=== PATIENT | female | born 1985 | race Caucasian/White ===

== ENCOUNTER 2023-09-06 10:32 | Outpatient (CLI) | payer OTHER, SELFPAY | END 2023-09-06 10:33 | disposition home or self-care (01) | PROVIDERS: PCP Nurse Practitioner Family; Visit Provider Nurse Practitioner Family | DX: Z00.00 Encounter for general adult medical examination without abnormal findings (principal); E66.9 Obesity, unspecified; Z13.6 Encounter for screening for cardiovascular disorders; Z13.1 Encounter for screening for diabetes mellitus | CPT/HCPCS: 80061; 82306; 82947 ==

== ENCOUNTER 2025-03-18 11:05 | Outpatient (CLI) | payer OTHER, SELFPAY | END 2025-03-18 11:06 | disposition home or self-care (01) | PROVIDERS: PCP Nurse Practitioner Family; Visit Provider Nurse Practitioner Family | DX: Z00.00 Encounter for general adult medical examination without abnormal findings (principal); E66.9 Obesity, unspecified; Z13.21 Encounter for screening for nutritional disorder; Z13.6 Encounter for screening for cardiovascular disorders; Z13.1 Encounter for screening for diabetes mellitus | CPT/HCPCS: 80061; 82306; 82947; 85025 ==

== ENCOUNTER 2025-04-30 14:03 | Outpatient (CLI) | payer OTHER, SELFPAY ==
--- NOTE | 2025-04-30 14:30 | CRLHL7_ITS ---
For Patients: As a result of the Century Cures Act, medical imaging exams and procedure reports are released immediately into your electronic medical record. You may view this report before your referring provider. If you have questions, please contact your health care provider. BILATERAL BREAST MRI WITHOUT AND WITH GADOLINIUM CLINICAL HISTORY: Screening and high-risk INDICATION FOR BREAST MRI: (1) Staging of newly diagnosed breast cancer and screening of contralateral breast. Regional lymph nodes will also be assessed. (2) Screening breast MRI in this high-risk woman. (3) Problem-solving breast MRI. (4) Other ??? dictate. COMPARISON STUDIES: None. CONTRAST: 16 cc of Dotare[employer] TECHNIQUE: The patient was positioned prone using a breast coil. Multiple imaging sequences were obtained using 1-1.5 mm thick slices with no gap. The image sequences include T2-weighted STIR in the axial plane, T1-weighted nonfat-saturated gradient echo in the axial plane, pre- and post-contrast T1-weighted FLASH 3D with fat suppression in the axial plane, and T1-weighted FLASH high resolution 3D with fat suppression in the sagittal plane. Image post-processing was performed on a [employer] workstation. Complex 3D rendering including maximum intensity projections (MIPS) and volumetric renderings were obtained to optimize visualization of the extent of pathology and relationship to the nipple, skin, and chest wall. This aids in determining feasibility of breast conservation surgery. Subtraction, multiplanar reconstruction, mean curve determination, and angiogenesis mapping were also performed. The study was technically adequate. FINDINGS: Amount of Fibroglandular Tissue: Scattered fibroglandular tissue. Breast Background Enhancement: Mild. RIGHT/LEFT breast: No suspicious enhancement in either breast. Lymph Nodes: No abnormal morphology axillary lymph nodes. IMPRESSIONS AND RECOMMENDATIONS: 1. No MRI findings for malignancy in either breast. No abnormal morphology axillary lymph nodes. Recommend continuing with yearly screening mammography screening MRs are felt to be indicated recommend that these be offset at six-month intervals with screening mammograms. BI-RADS Category 2 Dictated by Augustina Cloud MD @ 05/04/2025 12:37:29 PM (Electronically Signed)
== END 2025-04-30 14:04 | disposition home or self-care (01) ==
LOC: MRI 14:05
PROVIDERS: PCP Nurse Practitioner Family; Visit Provider Surgery
DX: Z12.39 Encounter for other screening for malignant neoplasm of breast (principal); Z80.3 Family history of malignant neoplasm of breast; Z91.89 Other specified personal risk factors, not elsewhere classified
CPT/HCPCS: 77049; C8908; C8937; A9575